=== PATIENT | male | born 1975 | race Caucasian/White ===

== ENCOUNTER 2018-12-30 10:43 | Outpatient (CLI) | payer BC ==
--- NOTE | 2018-12-30 12:41 | RAD ---
RIGHT HAND 3 VIEWS: Date: 12/30/18 HISTORY: Crush injury to hand 3 weeks ago. Limited mobility of middle finger. FINDINGS: There are no signs of fracture or dislocation. Small hook-type osteophyte is seen at the third metaca rpal. No additional findings. IMPRESSION: No evidence of fracture. POS: [facility]
== END 2018-12-30 10:44 | disposition home or self-care (01) ==
LOC: SCSRAD 10:43
PROVIDERS: ATTEND Family Medicine
DX: S69.91XA Unspecified injury of right wrist, hand and finger(s), initial encounter (principal)

== ENCOUNTER 2019-09-15 13:15 | Outpatient (CLI) | payer BC ==
--- NOTE | 2019-09-15 14:43 | MRI ---
MRI cervical spine noncontrast: DATE: 09/15/2019 HISTORY: 44-year-old male with cervicalgia FINDINGS: Cervical spinal cord is normal in size and signal. No Chiari I malformation. Vertebral body heights a nd disc spaces are maintained. No high-grade facet DJD at any level. Mild right facet DJD at C7-T1. No significant central spinal canal stenosis at any level. There is moderate right neural foraminal s tenosis at C5-6, and moderate right neural foraminal stenosis at C6-7, due to small uncinate process osteophytes. No significant neural foraminal stenosis at any other level. No prominent focal disc herniation. No cord impingement. Bone marrow signal is normal. IMPRESSION: 1.) Moderate right neural foraminal stenosis at C5-6 and C6-7. 2) otherwise negative.
--- NOTE | 2019-09-15 17:06 | MRI ---
MRI OF THE LUMBAR SPINE WITHOUT CONTRAST: 05/17/19 INDICATIONS: Low back pain. Radiation to right leg. FINDINGS: Lumbar vertebrae maintain normal height and alignment. Vertebral body signal is normal. Degenerative disc changes are noted at L4-5 with mild loss of disc space at this level. Findings at each disc level are described. L1-2: No disc bulge or protrusion. No central canal or foraminal stenosis. L2-3: No significant disc bulge. Mild facet arthrosis. No central canal or foraminal stenosis. L3-4: There is a small annular fissure and a mild diffuse disc bulge flattening the thecal sac. Mild facet arthrosis. No significant central canal or foraminal stenosis. L4-5: Evidence of annular fissure with broad based disc bulge abutting and mildly flattening the thec al sac. There is facet arthrosis and hypertrophy. No central canal or foraminal stenosis identified. L5-S1: Mild disc bulge. Congenitally smaller thecal sac. There is facet arthrosis; however, no centr al canal or foraminal stenosis. IMPRESSION: Annular fissure with mild disc bulge at L3-4 and L4-5 as described above. No significant central david l or foraminal stenosis identified. POS: [facility]
--- NOTE | 2019-09-15 18:00 | MRI ---
MRI THORACIC SPINE: 09/15/19 INDICATIONS: Thoracic pain. history of prior back surgery in 2016. Correlation made to plain films of thoracic spine dated 2006. Plain films show vertebroplasty change s at the C6-C7 level. FINDINGS: There are compression deformities at T6 and T7 with vertebroplasty changes. There is no edema within these vertebrae. Anterior wedging at both of these vertebral bodies results in greater than 50% loss of anterior height. The other thoracic vertebrae maintain height and alignment. There is no evidence for vertebral body e ramya seen in any of the thoracic vertebra on STIR sequence. There is a small disc protrusion paracentrally to the right at T4-T5 which does flatten the anterior thecal sac on the right and abuts the anterior cord on the right. This produces mild foraminal encroa chment and may be contacting the exiting right T4 nerve root. At T1-T12, there is a mild diffuse disc bulge flattening the thecal sac. This does not impinge on the conus and there is no central canal st enosis. Signal in this posterior disc may indicate small annular fissure. Evidence of a small osteophyte from the posterior T6 vertebra on the left compressing the anterior th ecal sac and abutting the anterior cord. No other evidence of significant disc bulge or protrusion. There is no other evidence of central david l encroachment or stenosis. The thoracic cord signal appears normally maintained. Conus is seen at T12-L1. IMPRESSION: 1. There are wedge compression deformities with vertebroplasty change at T6-T7 which are old. 2. Small disc osteophyte complex on the right at T4-T5 as described. 3. Small osteophyte posterior T6 vertebra on the left as described. 4. Mild diffuse bulge at T11-T12 flattens the thecal sac and there may be a small annular fissur e at this level. POS: [facility]
== END 2019-09-15 13:16 | disposition home or self-care (01) ==
LOC: TBSIIMAG 13:15
PROVIDERS: ATTEND Neurological Surgery
DX: M54.5 Low back pain (principal); M54.6 Pain in thoracic spine; M54.2 Cervicalgia; M25.78 Osteophyte, vertebrae; M51.34 Other intervertebral disc degeneration, thoracic region; M51.36 Other intervertebral disc degeneration, lumbar region; M48.02 Spinal stenosis, cervical region; Z98.890 Other specified postprocedural states
CPT/HCPCS: 72141; 72146; 72148

== ENCOUNTER 2024-11-22 11:28 | Emergency (ER) | payer BC ==
[2024-11-22] MEDS ORDERED: Aspirin Chewable 81 MG TAB ONE (11:59)
[2024-11-22 12:03] LABS: #Basophils 0.05 10x3/uL (0.0-0.2); #Eosinophils 0.17 10x3/uL (0.0-0.7); #Monocytes 0.71 10x3/uL (0.11-0.59); #Neutrophils 5.86 10x3/uL (1.40-6.50); %Basophils 0.6 % (0.0-1.0); %Eosinophils 1.9 % (0.0-10.0); %Lymphocytes 21.9 % (21.0-51.0); %Monocytes 8.1 % (0.0-10.0); %Neutrophils 66.9 % (42.0-75.0); Hematocrit 47.0 % (42.0-52.0); Hemoglobin 15.5 g/dL (14.0-18.0); Mean Corpuscular Hemoglobin 30.3 pg (27.0-31.0); Mean Corpuscular Volume 91.8 fL (78.0-98.0); Platelet Count 264 10x3/uL (130-400); Red Blood Cell (RBC) Count 5.12 mill/uL (4.70-6.10); White Blood Cell (WBC) Count 8.76 10x3/uL (4.8-10.8)
[2024-11-22 12:42] LABS: ALT (SGPT) 41 U/L (Less than 45); AST (SGOT) 23 U/L (11-34); Albumin 4.6 g/dL (3.1-4.5); Alkaline Phosphatase 57 U/L (40-110); Anion Gap 14 mmol/L (10-20); BUN (Urea Nitrogen) 15 mg/dL (8.9-20.6); Bilirubin, Total 0.6 mg/dL (0.3-1.2); Calc. Creatinine Clearance 0 mL/min (70-130); Calcium 9.5 mg/dL (7.8-10.44); Carbon Dioxide 26 mmol/L (22-29); Chloride 104 mmol/L (98-107); Globulin 2.7 g/dL (2.4-3.5); Glucose 89 mg/dL (70-105); Potassium 4.3 mmol/L (3.5-5.1); Sodium 140 mmol/L (136-145)
== END 2024-11-22 13:57 | disposition home or self-care (01) ==
LOC: ERS 11:28
DX: R07.9 Chest pain, unspecified (principal); M54.12 Radiculopathy, cervical region; I10 Essential (primary) hypertension
CPT/HCPCS: 36416; 70450; 71045; 80053; 83880; 84484; 85025; 93005